=== PATIENT | male | born 1975 | race Caucasian/White ===

== ENCOUNTER 2023-08-12 07:00 | Outpatient (CLI) | payer SELFPAY ==
--- NOTE | 2023-08-12 15:42 | XRAY Report ---
PROCEDURE: Lumbar Spine 2 View INDICATIONS: LUMBAR BACK PAIN TECHNIQUE: 3 views of the lumbar spine were acquired. COMPARISON: None. FINDINGS: Bones: 5 [id number] vertebrae are present. There is normal bony alignment. No vertebral body compression fractures. No suspicious bony lesions. Degenerative changes including intervertebral dis c space narrowing, endplate sclerosis and osteophytosis are present at L3-4, L4-5, and L5-S1. Soft tissues: Overlying bowel gas pattern is normal. No suspicious soft tissue calcifications. IMPRESSION: Degenerative change. No compression deformities. Reviewed by: Anabel Meier MD on 08/12/2023 3:41 PM PST Approved by: Anabel Meier MD on 08/12/2023 3:41 PM PST Station ID: [id number]
== END 2023-08-12 23:59 | disposition home or self-care (01) ==
LOC: DI.S 07:00
PROVIDERS: ATTEND Registered Nurse
DX: M47.816 Spondylosis without myelopathy or radiculopathy, lumbar region (principal)